=== PATIENT | male | born 1975 | race Caucasian/White ===

== ENCOUNTER → 2017-01-06 | Outpatient (CLI) | payer OTHER ==
[~2017-01-06] VITALS: Ht 177.8 cm; Wt 93.8 kg
[2017-01-06 13:53] VITALS: BP 131/83; PULSE 112; BMI 29.7
[2017-01-06 13:54] VITALS: BP 131/84; PULSE 112; Ht 177.8 cm; Wt 93.8 kg
== END | disposition home or self-care (01) ==
LOC: C.NEUR 12:45
PROVIDERS: ATTEND Internal Medicine Pulmonary Disease
DX: G47.9 Sleep disorder, unspecified (principal); R53.83 Other fatigue; R06.81 Apnea, not elsewhere classified; R06.83 Snoring

== ENCOUNTER → 2017-01-11 | Outpatient (CLI) | payer OTHER ==
--- NOTE | 2017-01-12 06:48 | PAP/PSG TECHNICIAN REPORT ---
[facility] Medication Nurse Polysomnogram Report Study name: None Report date: 01/12/2017 Study date: 01/11/2017 Referring Physician: Chung Palomo M.D. Name: CHUNG MASCORRO Interpreting Physician: Chung Palomo M.D. Date of : 1975 Medication Nurse: Ellen Calderón, PSGT. Sex: Male Age: 41 StudyType: PSG Weight: 206.7 lbs Height: 41 years, Height 5' 10" Neck Circum:19 inches BMI: 29.66 Medications: LISINOPRIL 10 MG, TRAMADOL HCI 50 MG. Patient History 41 YR. OLD MALE PRESENTS TO THE SLEEP LAB FOR A SPLIT NIGHT STUDY. PT. STATES THAT HE SNORES, WAKES TIRED AND SPOUSE HAS WITNESSED APNEAS. HE ALSO STATES THAT HE WAKES GASPING FOR AIR WHILE SLEEPING.ESS= 15, NECK = 19 INCHES...... Parameters Monitored NPSG: E1-M2, E2-M1, Fp1-M2, Fp2-M1, F3-M2, F4-M2, F4-M1, C3-M2, C4-M2, C4-M1, O1-M2, O2-M2, O2-M1, T3-M2, T4-M1, P3-M2, P4-M1, CHIN1, CHIN2, HR, EKG, Legs, PFLOW, SNOR, FLOW, CFLOW, Tidal Volume, THOR, ABDO, SpO2, PLTH, CPRESS, ETCO2 Wave, ETCO2, pH Sleep Architecture Sleep Stages Time at Lights Off 9:28:01 PM STAGES Time (min.) TST (%) Time at Lights On 5:40:31 AM Wake 47.0 -- Total Recording Time (TRT) 493.50 min. N1 28.0 6 Total Sleep Period (TSP) 473.5 min. N2 325.0 73 Total Sleep Time (TST) 445.5min. N3 17.0 4 Awake Time 47.0 min. REM 75.5 17 Wake after Sleep Onset 28.0 min. Sleep Efficiency (SE) 90 % Sleep Onset Latency (MAI) 19.0 min. Number of Stage 1 Shifts None Awakenings 10 Stage Changes 53 Number of REM periods 4 REM 75.5 17 REM Latency 85.5 min. NREM 370.0 83 Body Position Analysis Supine Right Left Side Prone Vertical Total Sleep Time (min.) 141.0 63.3 252.4 315.75 0.0 4.9 Total Sleep Time (%) 29% 14% 57% 71 0% N/A% Total Sleep Time REM (min.) 17.9 20.0 37.6 None 0.0 0.0 Total Sleep Time NREM (min.) 111.9 43.3 214.8 None 0.0 0.0 Intermittent Wake (min.) 11.3 2.4 28.4 None 0.0 4.9 Total Sleep Period (%) 30% None None None None None Arousals Myoclonus (PLM) * Events Count Index Events Count Index Spontaneous 64 9 Events Awake (PLMW) 0 0.0 Respiratory 55 7.4 Events Asleep w/ Arousal (PLMA) 100 13.5 PLM 100 13 Events Asleep w/o Arousal (PLMS) 221 29.8 Snoring 47 6 Total Asleep 321 43.2 Total 265 36 Total 321 39 Respiratory Analysis * CA OA MA CH H RERA Total Count 3 8 7 0 82 0 100 Index 0.4 1.1 0.9 0 11.0 0 13.5 Mean Duration 22.4 25.3 23.9 0.00 21.6 0.0 22.1 Longest Duration 34.0 37.0 33.7 0.00 33.7 0.0 47.2 Respiratory Event Summary Total Supine ~Supine Right Left Prone REM NREM Apneas Count 18 16 2 0 2 N/A 0 18 Index 2.4 7 0 0.0 0.5 N/A 0 3 Hypopneas (4% Desat) Count 82 59 23 14 9 N/A 6 76 Index 11.0 27.3 4 13.3 2.1 N/A 4.8 12.3 Apneas & All Hypopneas Count 100 75 25 14 11 N/A 6 94 Index 13.5 35 5 13 3 N/A 4.8 15.2 Respiratory Events ([employer] Worker+All Hyp+RERA) Count 100 75 25 14 11 N/A 6 94 Index 13.5 35 5 13.3 2.6 N/A 4.8 15.2 Respiratory Related Arousal Count 55 75 10 5 5 N/A 0 55 Index 7.4 21 2 5 1 N/A 0 9 Snoring Analysis Supine Right Left Prone REM NREM Total Snore duration 59.4 min Snores count 504 384 1,425 N/A 439 1,874 2,313 Snore mean duration 1.5 Sec Snores index 233 364 339 N/A 348.9 303.9 311.5 TST with snoring (%) 13.3% Desaturation Event Summary: Minimum %SpO2 Event Count Mean/Min/Max Duration(sec.) Desaturation Index % Time In Bed > 90 119 22.8 / 12.3 / 54.0 15.1 97.0 86 - 90 1 14.0 / 14.0 / 14.0 4.2 2.9 81 - 85 0 N/A 0.0 0.0 76 - 80 0 N/A 0.0 0.0 71 - 75 0 N/A 0.0 0.0 66 - 70 0 N/A 0.0 0.0 61 - 65 0 N/A 0.0 0.0 56 - 60 0 N/A 0.0 0.0 51 - 55 0 N/A 0.0 0.0 < 50 0 N/A 0.0 0.0 Total REM NREM Awake <50% 0.0 min. 0.0 min. 0.0 min. 0.0 min. 51 - 60% 0.0 min. 0.0 min. 0.0 min. 0.0 min. 61 - 70% 0.0 min. 0.0 min. 0.0 min. 0.0 min. 71 - 80% 0.0 min. 0.0 min. 0.0 min. 0.0 min. 81 - 90% 14.5 min. 3.4 min. 10.2 min. 0.8 min. 91 - 100% 474.1 min. 72.0 min. 356.3 min. 45.7 min. Average 94 94 94 94 Minimum SpO2 84 85 84 87 Desaturation Event Index 14.6 7.2 18.0 1.3 # Desat. Events below 89% 19 4 15 N/A Time(%) with Saturation below 89% 0.7 0.2 0.5 0.0 Time(min.) with Saturation below 89% 3.5 1.1 2.3 0.1 Time (mins) REM (mins) NREM (mins) % of TST SpO2 Below 90% 61 7 N54 1.6 SpO2 Below 88% 7 0 0 0 Heart Rate Analysis Min (bpm) Max (bpm) Average (bpm) Awake 58 127 78 NREM 40 225 68 REM 54 90 72 Overall 40 225 69 Supplemental O2 Values Minimum O2 level: None Value Start Time End Time Medication Nurse Comments PSG Study Mr. Mascorro slept in the right, left, and supine positions. No cardiac arrhythmia or PLM's noted. No bruxism noted. Snoring was noted and scored as a 5 on a scale of 1 through 5. (0=no snoring, 5=snoring loud enough to be heard through a closed door or down the carrera way) Mr. Mascorro awoke to use the restroom zero times during the night. Mr. Mascorro stated, I did not sleep as well as I do when I am in my own bed. The final report will be interpreted and signed by a sleep physician. The completed physician report will then be placed in the patient medical record. Therapy (cm H2O) 0 TIB (min.) 492.5 TST (min.) 445.5 Sleep Onset (min.) 19.0 REM Onset From Sleep (min.) 85.5 Sleep Efficiency % 90 Wakefulness (%) 10 Wakefulness (min.) 47.0 NREM 1 (%) 6 NREM 1 (min.) 28.0 NREM 2 (%) 73 NREM 2 (min.) 325.0 NREM 3 (%) 4 NREM 3 (min.) 17.0 REM (%) 17 REM (min.) 75.5 # Arousals 265 Arousal Index 36 # Snore 2,313 Snore Index 311.5 AHI 13.5 AHI Supine 35 AHI Non-Supine 5 NREM AHI 15.2 REM AHI 4.8 RDI 13.5 # Obstructive Apnea 8 # Central Apnea 3 # Mixed Apnea 7 # Hypopneas 82 RERAs 0 Total Respiratory Events 100 Time Below SpO2 89% (min.) 3.4 Mean NREM SpO2 (%) 94 Mean REM SpO2 (%) 94 Mean Sleep SpO2 (%) 94 Min NREM SpO2 (%) 84 Min REM SpO2 (%) 85 Position Supine (min.) 141.0 Position Non-supine (min.) 315.8 LM Index Sleep 43.2 LM Index NREM 47.0 LM Index REM 24.6 Mean Heart Rate (bpm) 69 Min Heart Rate (bpm) 40
--- NOTE | 2017-01-13 16:05 | Sleep Study ---
Sleep Study Report Date of Service: January 11, 2017 Sleep Study Report Clinical data: The patient is a 41-year-old male with snoring, fatigue, and witnessed apnea. He awakens gasping for air during sleep. His [place] sleepiness score is 15/24. Sleep architecture: Total sleep time was 445.5 minutes, divided between 370 minutes of non-REM sleep and 75.5 minutes of REM sleep. Sleep onset latency was 19 minutes. REM latency was 85.5 minutes. Sleep efficiency was 90 percent. Wake after sleep onset was 28 minutes. Sleep consisted of stage N1 6 percent, N2 73 percent, N3 4 percent, and REM 17 percent. Arousal data: 265 arousals were recorded for an index of 36 per hour. PLM data: 321 limb movements during sleep were noted for an index of 43.2 per hour with an arousal index of 13.5 per hour Respiratory data: Mild sleep apnea was documented. The AHI was 13.5. There were 3 central, 8 mixed, and 7 obstructive apneic episodes. The longest apnea episode was 37 seconds. There were 82 hypopneas episodes. The longest hypopnea episode was 33.7 seconds. Oximetry data: Mild nocturnal hypoxemia was seen. Oxygen angel was 84 percent during non-REM sleep. Mean saturation was 94 percent. Time below 88 percent was 7 minutes. EKG: Heart rates ranged from 40 to 90 beats per minute. No arrhythmias were noted. Engine Monitor's comments: The patient slept in the right, left, and supine position. Snoring was severe rated 5 on a scale of 1 through 5. He did not meet split night criteria. Impression: Mild sleep apnea/hypopnea with nocturnal hypoxemia. Recommendations: The patient should be considered for a repeat sleep study with CPAP or use of an oral appliance. Copies To 1: Hemal Hodgson M.D.
== END | disposition home or self-care (01) ==
LOC: C.NEUR 20:00
PROVIDERS: ATTEND Internal Medicine Pulmonary Disease
DX: G47.30 Sleep apnea, unspecified (principal); R53.83 Other fatigue; I10 Essential (primary) hypertension; R06.83 Snoring

== ENCOUNTER → 2017-01-17 | Outpatient (CLI) | payer OTHER ==
[~2017-01-17] VITALS: Ht 177.8 cm; Wt 93.4 kg
[2017-01-17 16:07] VITALS: BP 123/82; PULSE 94; Ht 177.8 cm; Wt 93.4 kg
== END | disposition home or self-care (01) ==
LOC: C.NEUR 15:18
PROVIDERS: ATTEND Internal Medicine Pulmonary Disease
DX: G47.33 Obstructive sleep apnea (adult) (pediatric) (principal)